=== PATIENT | male | born 1995 | race Caucasian/White ===

== ENCOUNTER 2018-08-02 06:14 | Day surgery (SDC) | payer OTHER ==
[2018-07-27 11:39] VITALS: BMI 38.3
[~2018-08-02 06:14] MED LIST: DEXAMETHASONE SOD PHOSPHATE 10 MG/ML 1 ML VIAL IV ONE; HEPARIN SODIUM,PORCINE 5,000 UNIT/ML 1 ML VIAL SQ ONE; HYDROmorphone 0.5 MG/0.5 ML SYRINGE IVP PRN; LIDOCAINE 1% 20 ML VIAL (10MG/ML) FOR IV START INTRADERMA PRN; MIDAZOLAM 2 MG/2 ML VIAL IV PRN; ONDANSETRON 4 MG/2 ML VIAL IVP ONE; SCOPOLAMINE 1.5MG/72HR PATCH TRANSDERM ONE; ceFAZolin IN SWFI 2 GM/20 ML SYRINGE IVP ONE
[2018-08-02] MEDS: LACTATED RINGERS 1,000 ML IV SCH ×2 (06:42→06:47)
[2018-08-02 06:43] VITALS: RESP 16
[2018-08-02] MEDS ORDERED: fentaNYL (PF) 50 MCG/ML 2 ML AMP IV ONE (07:20)
--- NOTE | 2018-08-02 07:53 | P.ONQ ---
Anesthesiology Proc Note - PNB - Peripheral Nerve Block Performed Right Transversus Abdominis Single Time Out Performed: Yes Procedure Start Time: 07:20 Indication: Acute Post-Operative Pain Sedation Type: Sedate with meaningful contact maintained Preparation: Sterile Prep Position: Supine Catheter: None Needle Types: Other (see comment) (Pajunk) Needle Size: 100mm (4") Needle Gauge: 21 Technique: Ultrasound Injectate: Other (see comment) (1%lido/0.25%rop 30cc) Adjunct: Epinephrine (see comment for dilution ratio) (1:200,000) Blood Aspirated: No Pain Paresthesia on Injection Noted: No Resistance on Injection: Normal Events: Uneventful and Well Tolerated
[2018-08-02] MEDS ORDERED: ROPIVACAINE 5 MG/ML 30 ML VIAL ONE (07:55)
[2018-08-02] MEDS ORDERED: SUCCINYLCHOLINE CHLORIDE 100 MG/5 ML SYR IV ONE (07:55)
[2018-08-02] MEDS ORDERED: fentaNYL (PF) 50 MCG/ML 2 ML AMP ONE (07:55)
[2018-08-02] MEDS ORDERED: KETOROLAC 30 MG/ML 1 ML VIAL ONE (07:55)
[2018-08-02] MEDS ORDERED: ROCURONIUM BROMIDE 10 MG/ML 10 ML VIAL IV ONE (07:55)
[2018-08-02] MEDS ORDERED: LIDOCAINE 1% INJ 10MG/ML (20 ML MDV) ONE (07:55)
[2018-08-02] MEDS ORDERED: LIDOCAINE 2%-EPI 1:100,000 20 ML VIAL ONE (07:55)
[2018-08-02] MEDS ORDERED: MIDAZOLAM 2 MG/2 ML VIAL ONE (07:55)
[2018-08-02] MEDS ORDERED: HYDROmorphone (PF) 1 MG/ML ONE (07:55)
[2018-08-02] MEDS ORDERED: PROPOFOL 10 MG/ML 20 ML VIAL IV ONE (07:55)
[2018-08-02] MEDS ORDERED: NEOSTIGMINE 1 MG/ML 10 ML VIAL ONE (07:55)
[2018-08-02] MEDS ORDERED: GLYCOPYRROLATE 0.2 MG/ML 2 ML VIAL ONE (07:55)
--- NOTE | 2018-08-02 07:55 | P.GSHP ---
History of Present Illness H&P Date: 08/02/18 Chief Complaint: Right inguinal hernia This a 23-year-old male who presents today for laparoscopic robotic-assisted repair of right inguinal hernia. Patient's complaints of pain a mass in his right groin. Past Medical History Past Medical History: Thyroid Disorder Additional Past Medical History / Comment(s): RIGHT INGUINAL HERNIA History of Any Multi-Drug Resistant Organisms: None Reported Past Surgical History: No Surgical Hx Reported Additional Past Anesthesia/Blood Transfusion Reaction / Comment(s): HAS NEVER RECEIVED ANESTHESIA Past Psychological History: ADD/ADHD Smoking Status: Current every day smoker Past Alcohol Use History: None Reported Additional Past Alcohol Use History / Comment(s): SMOKES 1 PPD, SMOKING OFF AND ON SINCE 16 YRS OLD Past Drug Use History: Marijuana Additional Drug Use History / Comment(s): CURRENT MARIJUANA USE - Past Family History Father Family Medical History: Diabetes Mellitus Medications and Allergies Home Medications Medication Instructions Recorded Confirmed Type Dextroamphetamine/Amphetamine 20 mg PO BID 07/27/18 08/02/18 History [Adderall] Levothyroxine Sodium [Synthroid] 125 mcg PO DAILY 07/27/18 08/02/18 History Nicotine 21Mg/24Hr Patch [Habitrol 1 each TRANSDERM DAILY 07/27/18 08/02/18 History 21Mg/24Hr Patch] Allergies Allergy/AdvReac Type Severity Reaction Status Date / Time No Known Allergies Allergy Verified 08/02/18 06:35 Surgical - Exam Vital Signs Temp Pulse Resp BP Pulse Ox 97.9 F 91 16 140/78 97 08/02/18 06:41 08/02/18 06:41 08/02/18 06:41 08/02/18 06:41 08/02/18 06:41 - General well developed, well nourished, no distress - Eyes PERRL - ENT normal pinna - Neck no masses - Respiratory normal expansion - Cardiovascular Rhythm: regular - Abdomen Abdomen: soft, non tender Hernia: inguinal Assessment and Plan Assessment: Right inguinal hernia. We'll perform laparoscopic robotic-assisted repair.
[2018-08-02] MEDS ORDERED: BUPIVACAINE-EPI 0.5%-1:200,000 10 ML VIAL SQ ONE (08:36)
[2018-08-02 09:26] VITALS: TEMP 97.3
--- NOTE | 2018-08-02 09:32 | P.OP ---
Date of Procedure: 08/02/18 Preoperative Diagnosis: Right inguinal hernia Postoperative Diagnosis: Right inguinal hernia Procedure(s) Performed: Laparoscopic robotic system repair of right inguinal hernia Anesthesia: MARY Surgeon: Coredll An Estimated Blood Loss (ml): 5 Pathology: none sent Condition: stable Disposition: PACU Description of Procedure: The patient was placed on the operating table in the supine position. The patient received general anesthesia. The patient's abdomen was prepped and draped in usual sterile fashion. The skin was anesthetized 1% local Xylocaine at the incision sites. Using an 11 blade a skin incision was made at the umbilicus. The fascia was grasped with a Britney and then the peritoneal cavity was entered with the Veress needle. Position of the Veress needle was confirmed with a positive drop test. After adequate insufflation a 5 mm trocar was placed into the peritoneal cavity. The Laparoscope was placed the peritoneal cavity. And a robotic 8 mm trocar was placed in the right lateral position and then another 8 mm robotic trochars placed in the left lateral position. The original 5 mm trocar was exchanged for a 12 mm trocar. The patient was placed in reverse Trendelenburg and then the patient was docked to the robot. Next the peritoneum over top of the hernia was incised and then using blunt and sharp dissection and electrocautery the hernia sac was dissected free from the floor of the inguinal canal. The hernia sac was completely reduced into the peritoneal cavity. And then using the Pro life enrichment director mesh the hernia was repaired. The peritoneum was then sutured with 2-0V lock suture. The patient was then undocked the robot. The needle was withdrawn from the peritoneal cavity. The umbilical trocar site was closed with 0 Ethibond suture. The skin was closed interrupted 3-0 Monocryl suture. Dermabond dressing was applied. Patient was sent to recovery in stable condition.
[2018-08-02 10:56] VITALS: BP 129/86; PULSE 75
== END 2018-08-02 11:42 | disposition home or self-care (01) ==
LOC: OR 06:14
PROVIDERS: ATTEND Surgery
DX: K40.90 Unilateral inguinal hernia, without obstruction or gangrene, not specified as recurrent (principal); F17.210 Nicotine dependence, cigarettes, uncomplicated; F90.9 Attention-deficit hyperactivity disorder, unspecified type; E07.9 Disorder of thyroid, unspecified; Z79.890 Hormone replacement therapy; Z79.899 Other long term (current) drug therapy
CPT/HCPCS: 49650; 64486; C1781; J2250; J1644; J1100; J2710; J2405; J2001; J3010; J1885; J1170; J2795; J0330; J2704; J0690

== ENCOUNTER 2018-12-29 16:19 | Emergency (ER) | payer OTHER ==
[2018-12-29 17:29] LABS: ALT 47 U/L (21-72); AST 29 U/L (17-59); African American GFR (CKD) >90 (>60 ml/min/1.73 sqM); Albumin 4.3 g/dL (3.5-5.0); Alkaline Phosphatase 68 U/L (38-126); Anion Gap 9 mmol/L; Blood Urea Nitrogen 14 mg/dL (9-20); Calcium 9.5 mg/dL (8.4-10.2); Carbon Dioxide 22 mmol/L (22-30); Chloride 108 mmol/L (98-107); Glucose 94 mg/dL (74-99); Non-African American GFR(CKD) >90 (>60 ml/min/1.73 sqM); Potassium 4.2 mmol/L (3.5-5.1); Sodium 139 mmol/L (137-145); Total Bilirubin 0.5 mg/dL (0.2-1.3); Total Protein 6.9 g/dL (6.3-8.2)
[2018-12-29 17:30] LABS: Basophils % (A) 0 %; Eosinophils # (A) 0.1 k/uL (0-0.7); Eosinophils % (A) 1 %; HCT 50.8 % (39.0-53.0); HGB 17.2 gm/dL (13.0-17.5); Lymphocytes # (A) 1.9 k/uL (1.0-4.8); Lymphocytes % (A) 18 %; MCH 30.4 pg (25.0-35.0); MCHC 33.9 g/dL (31.0-37.0); MCV 89.8 fL (80.0-100.0); Mean Platelet Volume 7.6; Monocytes # (A) 0.4 k/uL (0-1.0); Monocytes % (A) 4 %; Neutrophils # (A) 7.8 k/uL (1.3-7.7); Neutrophils % (A) 75 %; Platelet Count 197 k/uL (150-450); RBC 5.66 m/uL (4.30-5.90); RDW 15.3 % (11.5-15.5); WBC 10.4 k/uL (3.8-10.6)
--- NOTE | 2018-12-29 18:07 | CT ---
EXAMINATION TYPE: CT abdomen pelvis w con DATE OF EXAM: 12/29/2018 HISTORY: Generalized pain with rectal bleeding TECHNIQUE: Helical acquisition of images was performed from the lung bases through the pelvis. Autom ated exposure control for dose reduction was used. CT DLP: 1807.6 mGycm CONTRAST: Performed without Oral Contrast and with IV Contrast, patient injected with 100 mL of Isovu e 300. COMPARISON: None FINDINGS: LUNG BASES: No acute process. LIVER/GB: No significant abnormality is appreciated. PANCREAS: No significant abnormality is seen. SPLEEN: No significant abnormality is seen. ADRENALS: No significant abnormality is seen. KIDNEYS: No significant abnormality is seen. PERITONEAL CAVITY: No pneumoperitoneum or peritoneal fluid. RETROPERITONEAL ADENOPATHY: None visualized REPRODUCTIVE ORGANS: No significant abnormality is seen URINARY BLADDER: No significant abnormality is seen. PELVIC ADENOPATHY: None visualized. OSSEOUS STRUCTURES: No significant abnormality is seen. VASCULATURE: No acute vascular findings. BOWEL: There is mild indistinctness and circumferential mural thickening of the transverse and desce nding colon, associated with mild edematous reticulation of the associated transverse and descending mesocolons. The pattern suggests infectious/inflammatory colitis. Vascular colitis is unlikely becaus e of the vascular distribution of the involved colon. Ascending colon does not appear to be involved, nor does the sigmoid or rectum. Anal canal appears unremarkable. Appendix is negative. OTHER: The right inguinal region shows mild nonspecific edematous change and indistinctness. No focal findings. IMPRESSION: Mild transverse/descending colitis.
--- NOTE | 2018-12-29 18:24 | ED ---
General Adult HPI - General Chief complaint: GI Bleed Stated complaint: Bleeding Time Seen by Provider: 12/29/18 16:34 Source: patient Mode of arrival: ambulatory Limitations: no limitations - History of Present Illness Initial comments: very well appearing 23-year-old male presenting for 1 week of abdominal pain and one episode of bright red blood from rectum. Patient states that she had abdominal pain cramping like he has to poop for the past week. He states his stools been softer in today with diarrhea. He noted blood in his stools he states it was bright red and this caused him to present to the emergency department for evaluation. Patient denies any sharp pain he denies any nausea or vomiting. He denies any recent travel fevers or specific changes in diet. Patient denies history of Crohn's or ulcerative colitis. Patient denies any a dditional episodes of blood in stools. Denies history of hemorrhoids. Remaining review of system negative. Upon arrival patient appears well no signs of acute distress. Heart rate mildly elevated. - Related Data Home Medications Medication Instructions Recorded Confirmed Dextroamphetamine/Amphetamine 20 mg PO BID 07/27/18 08/02/18 [Adderall] Levothyroxine Sodium [Synthroid] 125 mcg PO DAILY 07/27/18 08/02/18 Nicotine 21Mg/24Hr Patch [Habitrol 1 each TRANSDERM DAILY 07/27/18 08/02/18 21Mg/24Hr Patch] Previous Rx's Medication Instructions Recorded Docusate [Colace] 100 mg PO BID #20 capsule 08/02/18 HYDROcodone/APAP 7.5-325MG [[place] 1 tab PO Q6HR PRN 3 Days #10 tab 08/02/18 7.5-325] Allergies Allergy/AdvReac Type Severity Reaction Status Date / Time No Known Allergies Allergy Verified 12/29/18 16:25 Review of Systems ROS Statement: Those systems with pertinent positive or pertinent negative responses have been documented in the HPI. ROS Other: All systems not noted in ROS Statement are negative. Past Medical History Past Medical History: Thyroid Disorder Additional Past Medical History / Comment(s): RIGHT INGUINAL HERNIA History of Any Multi-Drug Resistant Organisms: None Reported Past Surgical History: No Surgical Hx Reported Additional Past Anesthesia/Blood Transfusion Reaction / Comment(s): HAS NEVER RECEIVED ANESTHESIA Past Psychological History: ADD/ADHD Smoking Status: Current every day smoker Past Alcohol Use History: Rare Past Drug Use History: Marijuana - Past Family History Father Family Medical History: Diabetes Mellitus General Exam - General Exam Comments Initial Comments: General: The patient is awake and alert, in no distress, and does not appear acutely ill. Eye: +3 mm pupils are equal, round and reactive to light, extra-ocular movements are intact. No nystagmus. There is normal conjunctiva bilaterally. No signs of icterus. Ears, nose, mouth and throat: There are moist mucous membranes and no oral lesions. Neck: The neck is supple, there is no tenderness or JVD. Cardiovascular: There is a regular rate and rhythm. No murmur, rub or gallop is appreciated. Respiratory: Lungs are clear to auscultation, respirations are non-labored, breath sounds are equal. No wheezes, stridor, rales, or rhonchi. Gastrointestinal: Soft, non-distended, mild tenderness to palpation of the lower abdomen without masses or organomegaly noted. There is no rebound or guarding present. No rigidity. No CVA tenderness. Bowel sounds are unrema rkable. Musculoskeletal: Normal ROM, no tenderness. Strength 5/5. Sensation intact. Pulses equal bilaterally 2+. Neurological: A&O x 3. CN II-XII intact, There are no obvious motor or sensory deficits. Coordination appears grossly intact. Speech is normal. Skin: Skin is warm and dry and no rashes or lesions are noted. Psychiatric: Cooperative, appropriate mood & affect, normal judgment. Limitations: no limitations Course Vital Signs 12/29/18 12/29/18 16:21 18:50 Temperature 97.6 F 97.9 F Pulse Rate 104 H 79 Respiratory 16 18 Rate Blood Pressure 158/101 148/56 O2 Sat by Pulse 99 99 Oximetry Medical Decision Making - Medical Decision Making Very well-appearing 23-year-old male he is pleasant and nontoxic. Initial heart rate elevated however once and room and settled his heart rate was less than 90 bpm. Patient was comfortable. No additional episodes of bright red stools. One episode in total. History of dental pain 1 week. Patient's occult blood is positive however on rectal exam there is no gross bright red blood. No pal pable hemorrhoids. Rectal tone normal. Patient's abdomen was mildly tender. No signs of peritoneal irritation. CT of the abdomen and pelvis with obtained revealing a mild colitis. No evidence of complicating process. Patient has no leukocytosis or fever. I do not feel this is infectious. Most likely inflammatory. Return parameters a risk of perforation were discussed with patient who verbalizes understanding and the importance of return parameters. Patient states that he just used the restroom upon reevaluation and that it was much better and denied any bright red stools. Patient appears comfortable, hemodynamically stable, with a normal hemoglobin no additional episodes of bright red blood with normal rectal exam. I feel patient is stable for discharge with outpatient primary care and GI follow-up. Discussed case with Dr. Tesfaye who is agreeable with plan. - Lab Data Result diagrams: 12/29/18 16:52 12/29/18 16:52 Lab Results 12/29/18 12/29/18 12/29/18 Range/Units 16:52 16:52 16:52 WBC 10.4 (3.8-10.6) k/uL RBC 5.66 (4.30-5.90) m/uL Hgb 17.2 (13.0-17.5) gm/dL Hct 50.8 (39.0-53.0) % MCV 89.8 (80.0-100.0) fL MCH 30.4 (25.0-35.0) pg MCHC 33.9 (31.0-37.0) g/dL RDW 15.3 (11.5-15.5) % Plt Count 197 (150-450) k/uL Neutrophils % 75 % Lymphocytes % 18 % Monocytes % 4 % Eosinophils % 1 % Basophils % 0 % Neutrophils # 7.8 H (1.3-7.7) k/uL Lymphocytes # 1.9 (1.0-4.8) k/uL Monocytes # 0.4 (0-1.0) k/uL Eosinophils # 0.1 (0-0.7) k/uL Basophils # 0.0 (0-0.2) k/uL APTT 27.6 (22.0-30.0) sec Sodium 139 (137-145) mmol/L Potassium 4.2 (3.5-5.1) mmol/L Chloride 108 H (98-107) mmol/L Carbon Dioxide 22 (22-30) mmol/L Anion Gap 9 mmol/L BUN 14 (9-20) mg/dL Creatinine 0.83 (0.66-1.25) mg/dL Est GFR (CKD-EPI)AfAm >90 (>60 ml/min/1.73 sqM) Est GFR (CKD-EPI)NonAf >90 (>60 ml/min/1.73 sqM) Glucose 94 (74-99) mg/dL Calcium 9.5 (8.4-10.2) mg/dL Total Bilirubin 0.5 (0.2-1.3) mg/dL AST 29 (17-59) U/L ALT 47 (21-72) U/L Alkaline Phosphatase 68 (38-126) U/L Total Protein 6.9 (6.3-8.2) g/dL Albumin 4.3 (3.5-5.0) g/dL Stool Occult Blood (Negative) 12/29/18 Range/Units 17:48 WBC (3.8-10.6) k/uL RBC (4.30-5.90) m/uL Hgb (13.0-17.5) gm/dL Hct (39.0-53.0) % MCV (80.0-100.0) fL MCH (25.0-35.0) pg MCHC (31.0-37.0) g/dL RDW (11.5-15.5) % Plt Count (150-450) k/uL Neutrophils % % Lymphocytes % % Monocytes % % Eosinophils % % Basophils % % Neutrophils # (1.3-7.7) k/uL Lymphocytes # (1.0-4.8) k/uL Monocytes # (0-1.0) k/uL Eosinophils # (0-0.7) k/uL Basophils # (0-0.2) k/uL APTT (22.0-30.0) sec Sodium (137-145) mmol/L Potassium (3.5-5.1) mmol/L Chloride (98-107) mmol/L Carbon Dioxide (22-30) mmol/L Anion Gap mmol/L BUN (9-20) mg/dL Creatinine (0.66-1.25) mg/dL Est GFR (CKD-EPI)AfAm (>60 ml/min/1.73 sqM) Est GFR (CKD-EPI)NonAf (>60 ml/min/1.73 sqM) Glucose (74-99) mg/dL Calcium (8.4-10.2) mg/dL Total Bilirubin (0.2-1.3) mg/dL AST (17-59) U/L ALT (21-72) U/L Alkaline Phosphatase (38-126) U/L Total Protein (6.3-8.2) g/dL Albumin (3.5-5.0) g/dL Stool Occult Blood Positive (Negative) Disposition Clinical Impression: Colitis, Abdominal pain, Rectal bleeding Disposition: HOME SELF-CARE Condition: Good Instructions (If sedation given, give patient instructions): Gastrointestinal Bleeding (ED), Colitis (ED) Additional Instructions: Please use medication as discussed. Please follow-up with family doctor in the next 2 days, and GI doctor as discussed. Please return to emergency room if the symptoms increase or worsen or for any other concerns. Is patient prescribed a controlled substance at d/c from ED?: No Referrals: Monroe Lay DO [Primary Care Provider] - 1-2 days Deisy Mock MD [STAFF PHYSICIAN] - 1-2 days Time of Disposition: 18:23
[2018-12-29 18:57] VITALS: BP 148/56; PULSE 79; RESP 18; TEMP 97.9
== END 2018-12-29 18:50 | disposition home or self-care (01) ==
LOC: EC 16:19
DX: K52.9 Noninfective gastroenteritis and colitis, unspecified (principal); E07.9 Disorder of thyroid, unspecified; F90.9 Attention-deficit hyperactivity disorder, unspecified type; F17.200 Nicotine dependence, unspecified, uncomplicated; Z79.890 Hormone replacement therapy; Z79.899 Other long term (current) drug therapy
CPT/HCPCS: 36415; 80053; 85025; 85730; 82272; 74177; 99285; Q9967

== ENCOUNTER → 2021-07-12 | Outpatient (CLI) | payer OTHER ==
--- NOTE | 2021-07-12 17:44 | XR ---
EXAMINATION TYPE: XR ankle complete LT DATE OF EXAM: 07/12/2021 COMPARISON: NONE HISTORY: Ankle pain TECHNIQUE: 3 views FINDINGS: Ankle mortise is anatomic. I see no fracture nor dislocation. Joint spaces are normal. IMPRESSION: Negative left ankle exam.
== END | disposition home or self-care (01) ==
LOC: RADXRMAIN 11:44
PROVIDERS: ATTEND Family Medicine
DX: M25.572 Pain in left ankle and joints of left foot (principal)

== ENCOUNTER 2024-03-18 11:58 | Emergency (ER) | payer MEDICARE, OTHER ==
--- NOTE | 2024-03-18 12:16 | ED ---
Wound/Laceration HPI - General Source: patient Mode of arrival: ambulatory Limitations: no limitations - History of Present Illness Onset/Timin -: minutes(s) Location: other (Left finger) Extremity Location: Left: Hand Place: home Patient Tetanus UTD: Yes Context: accidental, sharp object use <Tristan Gatica - Last Filed: 03/18/24 12:14> <Eliza Kapadia - Last Filed: 03/18/24 14:20> - General Stated Complaint: L hand lac Time Seen by Provider: 03/18/24 12:10 - History of Present Illness Initial Comments: Quick note: This is a 28-year-old male who excellently cut himself utility knife. Endorses laceration to the base of left index finger with minimal pain (2 out of 10). Patient states tetanus vaccination is up-to-date. ( Tristan Gatica) 28-year-old male with no significant past medical history presented to the emergency department chief complaint of a laceration to his left index finger. States that he had his utility knife out when he accidentally cut his finger. Patient has full range of motion of the finger and denies paresthesias. States his last tetanus vaccine was most likely 9 years ago. No other acute complaints at this time. (Eliza Kapadia) - Related Data Home Medications Medication Instructions Recorded Confirmed Dextroamphetamine/Amphetamine 20 mg PO BID 07/27/18 08/02/18 [Adderall] Levothyroxine Sodium [Synthroid] 125 mcg PO DAILY 07/27/18 08/02/18 Nicotine 21Mg/24Hr Patch [Habitrol 1 each TRANSDERM DAILY 07/27/18 08/02/18 21Mg/24Hr Patch] Previous Rx's Medication Instructions Recorded Docusate [Colace] 100 mg PO BID #20 capsule 08/02/18 HYDROcodone/APAP 7.5-325MG [[place] 1 tab PO Q6HR PRN 3 Days #10 tab 08/02/18 7.5-325] Allergies Allergy/AdvReac Type Severity Reaction Status Date / Time No Known Allergies Allergy Verified 03/18/24 12:24 Review of Systems ROS Other: All systems not noted in ROS Statement are negative. <Tristan Gatica - Last Filed: 03/18/24 12:14> ROS Other: All systems not noted in ROS Statement are negative. <Eliza Kapadia - Last Filed: 03/18/24 14:20> ROS Statement: Those systems with pertinent positive or pertinent negative responses have been documented in the HPI. Past Medical History Past Medical History: Thyroid Disorder Additional Past Medical History / Comment(s): RIGHT INGUINAL HERNIA History of Any Multi-Drug Resistant Organisms: None Reported Past Surgical History: No Surgical Hx Reported Additional Past Anesthesia/Blood Transfusion Reaction / Comment(s): HAS NEVER RECEIVED ANESTHESIA Past Psychological History: ADD/ADHD Past Alcohol Use History: Rare Past Drug Use History: Marijuana - Past Family History Father Family Medical History: Diabetes Mellitus <EnTristan - Last Filed: 03/18/24 12:14> General Exam <EnTristan - Last Filed: 03/18/24 12:14> General appearance: alert, in no apparent distress ENT exam: Present: normal exam, mucous membranes moist Neck exam: Present: normal inspection. Absent: tenderness, meningismus, lymphadenopathy Respiratory exam: Present: normal lung sounds bilaterally. Absent: respiratory distress, wheezes, rales, rhonchi, stridor Cardiovascular Exam: Present: regular rate, normal rhythm, normal heart sounds. Absent: systolic murmur, diastolic murmur, rubs, gallop, clicks GI/Abdominal exam: Present: soft, normal bowel sounds. Absent: distended, tenderness, guarding, rebound, rigid Left Hand Wrist exam: Present: laceration (Can digit/index finger mid V-shaped laceration measuring approximately 3 cm in length, no active bleeding.) Neuro motor exam: Present: wrist extension intact, thumb opposition intact Vascular: Present: normal capillary refill, radial pulse (2+). Absent: vascular compromise Back exam: Present: normal inspection Skin exam: Present: warm, dry, intact, normal color. Absent: rash <Eliza Kapadia - Last Filed: 03/18/24 14:20> - General Exam Comments Initial Comments: Visual Physical Exam Vital signs reviewed General: Well-appearing, nontoxic, no acute distress. Head: Normocephalic, atraumatic Eyes: PERRLA, EOMI ENT: Airway patent Chest: Nonlabored breathing Skin: No visual rash, normal skin tone, horizontal laceration noted wrapping around base of left index finger Neuro: Alert and oriented 3 Musculoskeletal: No gross abnormalities (Tristan Gatica) Course Vital Signs 03/18/24 03/18/24 12:25 14:08 Temperature 98.4 F Pulse Rate 87 87 Respiratory 18 18 Rate Blood Pressure 153/90 134/87 O2 Sat by Pulse 97 97 Oximetry Medical Decision Making <Tristan Gatica - Last Filed: 03/18/24 12:14> <AnamonalisaEliza - Last Filed: 03/18/24 14:20> - Medical Decision Making I completed the quick note portion of this chart signed NICOLE Hollis (Tristan Gatica) Was pt. sent in by a medical professional or institution (MIGUEL Aguilar, PLANT AND MAINTENANCE TECHNICIAN, urgent care, hospital, or assisted...) When possible be specific @ -No Did you speak to anyone other than the patient for history (EMS, parent, family, police, friend...)? What history was obtained from this source @ -No Did you review nursing and triage notes (agree or disagree)? Why? @ -I reviewed and agree with nursing and triage notes Were old charts reviewed (outside hosp., previous admission, EMS record, old EKG, old radiological studies, urgent care reports/EKG's, assisted records)? Report findings @ -No old charts were reviewed Differential Diagnosis (chest pain, altered mental status, abdominal pain women, abdominal pain men, vaginal bleeding, weakness, fever, dyspnea, syncope, headache, dizziness, GI bleed, back pain, seizure, CVA, palpatations, mental health, musculoskeletal)? @ -Laceration, skin avulsion, this list is not all inclusive EKG interpreted by me (3pts min.). @None X-rays interpreted by me (1pt min.). @ -None done CT interpreted by me (1pt min.). @ -None done U/S interpreted by me (1pt. min.). @ -None done What testing was considered but not performed or refused? (CT, X-rays, U/S, labs)? Why? @ -None What meds were considered but not given or refused? Why? @ -None Did you discuss the management of the patient with other professionals (professionals i.e. MIGUEL Aguilar, PLANT AND MAINTENANCE TECHNICIAN, lab, RT, psych nurse, manager social responsibility, mix crusher operator, teacher, medical scientific officer, caser)? Give summary @ -No Was smoking cessation discussed for >3mins.? @ -No Was critical care preformed (if so, how long)? @ -No Were there social determinants of health that impacted care today? How? (Homelessness, low income, unemployed, alcoholism, drug addiction, transportation, low edu. Level, literacy, decrease access to med. care, custodial, rehab)? @ -No Was there de-escalation of care discussed even if they declined (Discuss DNR or withdrawal of care, Hospice)? DNR status @ -No What co-morbidities impacted this encounter? (DM, HTN, Smoking, COPD, CAD, Cancer, CVA, ARF, Chemo, Hep., AIDS, mental health diagnosis, sleep apnea, morbid obesity)? @ -None Was patient admitted / discharged? Hospital course, mention meds given and route, prescriptions, significant lab abnormalities, going to OR and other pertinent info. @ -discharge. 28-year-old male with laceration to his left index finger. Patient was originally evaluated emergency department waiting room as a quick note. On my evaluation the patient is resting comfortably no signs acute dist ress. He is noted to have a proximately 3 cm laceration to the mid left index finger that is a V-shaped. There is no active bleeding. He is neurovascularly intact. The laceration approximates well and depth is not concerning for stitches. Topical adhesive applied over the finger and patient is instructed to continue to keep the area clean and dry and he is provided with his tetanus vaccination as well. Discussed with Dr. Jimenez Undiagnosed new problem with uncertain prognosis? @ -No Drug Therapy requiring intensive monitoring for toxicity (Heparin, Nitro, Insulin, Cardizem)? @ -No Were any procedures done? @ -No Diagnosis/symptom? @ -Laceration Acute, or Chronic, or Acute on Chronic? @ -Acute Uncomplicated (without systemic symptoms) or Complicated (systemic symptoms)? @ -uncomplicated Side effects of treatment? @ -No Exacerbation, Progression, or Severe Exacerbation? @ -No Poses a threat to life or bodily function? How? (Chest pain, [place], [place], pneumonia, PE, COPD, DKA, ARF, appy, cholecystitis, CVA, Diverticulitis, Homicidal, Suicidal, threat to staff... and all critical care pts) @ -No (Stieler,Eliza) Disposition <Tristan Gatica - Last Filed: 03/18/24 12:14> Is patient prescribed a controlled substance at d/c from ED?: No Time of Disposition: 13:50 <Eliza Kapadia - Last Filed: 03/18/24 14:20> Clinical Impression: Laceration Disposition: HOME SELF-CARE Condition: Good Instructions (If sedation given, give patient instructions): Skin Adhesive Care (ED) Additional Instructions: Please return to the Emergency Department if symptoms worsen or any other concerns. Referrals: Monroe Lay DO [Primary Care Provider] - 1-2 days
[2024-03-18 12:29] VITALS: PULSE 87; RESP 18; TEMP 98.4
[2024-03-18] MEDS: TOPICAL SKIN ADHESIVE 1 EACH AMP TOPICAL ONE (13:45)
[2024-03-18] MEDS: DIPH,PERTUS(ACELL)TETVAC-LF 0.5 ML VIAL IM ONE (13:45)
[2024-03-18 14:09] VITALS: BP 134/87
== END 2024-03-18 14:09 | disposition home or self-care (01) ==
LOC: EC 11:58
CPT/HCPCS: 90471; 90715; 99283